=== PATIENT | male | born 2000 | race Caucasian/White ===

== ENCOUNTER 2024-05-30 01:23 | Observation (INO) ==
--- NOTE | 2024-05-30 01:33 | Emergency Department Note ---
Impression & Plan Hypothermia, Nausea and vomiting, Hypokalemia, Alcohol intoxication, Acute dehydration ED Provider Note CHIEF COMPLAINT: Alcohol overdose HISTORY OF PRESENTING ILLNESS: This 23 year old male patient presents to the emergency department via ambulance for evaluation of an alcohol overdose. The patient states that he was drinking alcohol at [facility] and had been smoking marijuana earlier today. The patient states that he smokes marijuana regularly. He denies any other drug use. The patient walked himself home from [facility] and then started vomiting a lot prior to getting into the shower. The patient was concerned about the amount of vomiting he had and he called 911 to be evaluated. Denies any injury or trauma. Denies any pain or symptoms at the time of arrival. REVIEW OF SYSTEMS: Positives and pertinent negatives listed in the HPI. ALLERGIES: Shellfish - anxiety MEDICATIONS: Anti-depressant, Xyzal, Possibly Ritalin per mom PAST MEDICAL HISTORY: Depression, allergic rhinitis PHYSICAL EXAM: Vitals are noted on the nurse's note and reviewed by myself. GENERAL: The patient is visibly intoxicated. Initially in no acute distress, non-diaphoretic, non-toxic in appearance. However, that did change as below. SKIN: The skin was without obvious lacerations, abrasions, or injuries. Capillary reflex less than 2 seconds. EYES: PERRLA. EOMI. Conjunctivae with mild injection, but no discharge. Sclerae without icterus. NOSE: Patent without discharge. MOUTH: Mucous membranes mildly dry. Uvula midline. Airway patent. NECK: Supple without nuchal rigidity. No cervical spine tenderness. HEART: Regular rate and rhythm without murmurs gallops or rubs. LUNGS: Clear to auscultation bilaterally without wheezes, rales or rhonchi. No retractions or accessory muscle use. ABDOMEN: Positive bowel sounds x 4. Normal tympanic percussion. Soft, nontender to palpation initially, but the patient developed diffuse tenderness to palpation throughout his stay. No masses or organomegaly. No guarding or rebound tenderness. MUSCULOSKELETAL: No gross musculoskeletal defects. NEUROLOGIC: The patient is visibly intoxicated. He was able to answer questions and follow simple commands upon arrival. DIFFERENTIAL DIAGNOSIS: Differential diagnosis includes alcohol intoxication, drug intoxication, toxicologic, infection, hypoglycemia, electrolyte abnormalities, cardiac sources, intracerebral event, neurologic, trauma, psychosis, as well as other pathologies. ED COURSE AND MEDICAL DECISION MAKING: HISTORY FROM INDEPENDENT HISTORIAN: Additional history was obtained from EMS due to the patient's intoxication. I also obtained additional history from the patient's mother after obtaining consent from the patient to speak with his mother. MONITOR: Continuous computer meteorologist: Order was placed for continuous computer meteorologist. Patient was placed on the computer meteorologist and continuous pulse ox. Patient was noted to be in normal sinus rhythm at an initial rate of 60 bpm per my interpretation. EKG: EKG was interpreted by myself as sinus rhythm at 64 bpm with prolonged QT, but no acute ST or T wave changes. MEDICATIONS GIVEN: Phenergan 25 mg IM, Compazine 5 mg IV, a total of 1 L normal saline solution bolus. K rider. LR at 150 mL/h. INTERPRETATION OF LABS: I interpreted the labs with full lab results as below in the lab section of this note with pertinent findings discussed in the MDM summary. INTERPRETATION OF IMAGING: Imaging studies were interpreted by myself and read by radiology as per the imaging section of this note. CT scan of the head was negative for acute intracranial abnormality. CTA of the chest showed focal clusters of small groundglass opacities involving the superior segment of the left lower lobe. Possible infective etiology. No evidence for PE or other acute abnormalities. CT scan of the abdomen pelvis with IV contrast was negative for acute abnormalities. CONSULTATIONS: On-call hospitalist CRITICAL CARE: I have personally spent 45 minutes of critical care time in the direct management of this patient. This includes bedside care, interpretation of diagnostic studies, and testing, discussion with consultants, patient, and family members, and other required patient management activities. This 45 minutes is in excess of all separately billable procedures. MDM SUMMARY: I examined the patient. The patient is from [place] and is in town visiting friends for the football game. The patient was drinking alcohol at [employer] this evening and states that he had smoked marijuana earlier in the day. The patient was able to walk himself back to his friend's apartment. However, as he was trying to get in the shower, he started having significant vomiting and became concerned and called 911 himself. The patient denies any injury or trauma. At the time of my exam, the patient denied any symptoms and his nausea and vomiting had improved. The patient does not remember all of his medications, but states that he takes an anti-depressant. His mother feels that he may be on Ritalin as well. Conservative care measures were instituted and the patient was monitored throughout their stay. Aspiration precautions were instituted. While in the ER, the patient became bradycardic and nursing staff was concerned about his appearance. I presented to the bedside. The patient was retching and then started vomiting. However, he was still able to respond and answer questions. BSG was 99. EKG was obtained and was as above. Due to the prolonged QT, the Zofran was canceled and the patient was given Phenergan 25 mg IM for his nausea and vomiting. The patient's oral temp on arrival was 36.8 C, but he felt cold to touch and rectal temp was obtained and was 33.9 C. A Sharath hugger was placed to warm up the patient. At this point, an IV was placed and additional labs were obtained. The patient's potassium was 2.9 and he was given a K rider. He was also given 500 mL normal saline solution bolus initially followed by another 500 mL normal saline solution bolus. Due to the severe IV fluid shortage, no additional fluids were given in the ER at this time. The patient did improve after the IM Phenergan, IV fluids, and K rider. The patient's white blood cell count was normal at 6.17. Hemoglobin normal at 15.5. Platelet count normal at 181. Potassium low at 2.9, anion gap elevated at 14, and total bilirubin 1.1 with the remainder of the CMP normal. Magnesium is normal at 2.1. Lipase normal. Urinalysis with trace ketones, but otherwise normal. Urine drug screen positive for marijuana, but otherwise normal. Medical alcohol level 129.6. CT scan of the head without contrast was negative for acute intracranial abnormalities. The patient's repeat rectal temperatures continued to show hypothermia despite the Sharath hugger. Repeat rectal temps were 34.7 C and 35.8 C. His bradycardia persisted, but did improve slightly with the IV fluids. His hypotension improved with the IV fluids as well. With the patient's permission, I spoke with the patient's mother and obtained additional history. Apparently the patient had pretty significant COVID with the original strain of the virus and was diagnosed with long COVID. She states that he has had continued problems with his lungs and intermittent splenomegaly since that time. She states that he is not able to handle vomiting very well since he had COVID. I had a meaningful discussion about this patient with Dr. Wright who agrees with my assessment and the treatment plan. We recommended the patient be admitted for further management of his symptoms due to the continued hypothermia. When I rechecked the patient to discuss admission due to his continued hypothermia, the patient developed significant abdominal pain and felt like he had shortness of breath as well. The patient also started vomiting again. He was given Compazine [address] scans of the chest, abdomen, and pelvis were obtained to rule out other causes of his hypothermia, bradycardia, and hypertension. CTA of the chest showed focal clusters of small groundglass opacities involving the superior segment of the left lower lobe. Possible infective etiology. No evidence for PE or other acute abnormalities. The patient has not had a cough, URI symptoms, or fever. Question whether the CT scan findings are secondary to his previous history of COVID vs aspiration pneumonia from his vomiting. CT scan of the abdomen pelvis with IV contrast was negative for acute abnormalities. The patient did feel improved after the IV Compazine and was able to rest again. I spoke with the on-call hospitalist who agreed to admit the patient for further evaluation and treatment. They recommended I start the patient on lactated Ringer's at 150 mL/h prior to their evaluation. Please refer to their dictation for further details. The patient's care was transferred in stable condition. DIAGNOSIS: Hypothermia Bradycardia Hypokalemia Nausea and vomiting Alcohol intoxication Dehydration Past Med/Surg History Problem List (Updated 05/30/24 @ 20:12 by Philly Jasmine PA-C) Acute dehydration (Acute) Tachycardia Aspiration pneumonia Hypothermia (Acute) Alcohol intoxication (Acute) Hypokalemia (Acute) Nausea and vomiting (Acute) Social History Smoking Status: Current every day smoker Tobacco Type: E-cigarettes / Vaping Hx Alcohol Use: Yes Hx Substance Use: Yes Last Used Substance: Just Prior to Arrival Preferred Language: [place] Communication Ability: Effective Esthetician/Owner Required: No Beliefs That Will Affect Care: None Current Living Situation: Parent Other Information That Helps Us Care for You: No Feels Safe at Home: Yes Safety Concerns: Feels Safe At This Time Assistive Devices: None Allergies Allergies Allergy/AdvReac Type Severity Reaction Status Date / Time shellfish derived Allergy Verified 05/30/24 01:34 Home Meds Home Medications Medication Instructions Recorded Confirmed Ritalin 50 mg PO DAILY 05/30/24 05/30/24 Previous Rx's Medication Instructions Recorded amoxicillin 875 mg-potassium 1 tab PO BID 7 days #14 tabs 05/30/24 clavulanate 125 mg tablet ondansetron 4 mg disintegrating 4 mg PO Q6H PRN nausea and 05/30/24 tablet vomiting #14 tabs pantoprazole 40 mg tablet,delayed 40 mg PO DAILY 14 days #14 tabs 05/30/24 release (Protonix) Results & Data (ED) Vital Signs Vital Signs - 24 hr 05/30/24 01:28 05/30/24 01:33 05/30/24 01:50 Temperature 36.8 C Temperature Source Oral Pulse Rate 47 L 49 L Pulse Rate [Apical] Pulse Rate from SpO2 Sensor Pulse Rhythm [Apical] Respiratory Rate 16 Respiratory Effort / Characteristics Respiratory Depth Blood Pressure 125/81 Blood Pressure [Left Arm] Blood Pressure Mean 95 Blood Pressure Mean [Left Arm] Pulse Oximetry 100 100 Oxygen Delivery Method Room Air Room Air Sepsis Recent Fever Within 48 Hours No Sepsis New/Unexplained Change in Mental Status N/A Sepsis Action Taken by Nursing No Action Required 05/30/24 02:26 05/30/24 02:26 05/30/24 03:39 Temperature 33.9 C L Temperature Source Rectal Pulse Rate 51 L Pulse Rate [Apical] 38 L Pulse Rate from SpO2 Sensor Pulse Rhythm [Apical] Regular Respiratory Rate 13 18 Respiratory Effort / Characteristics Non-Labored Spontaneous Respiratory Depth Normal Blood Pressure 125/81 Blood Pressure [Left Arm] 125/81 Blood Pressure Mean 95 Blood Pressure Mean [Left Arm] 95 Pulse Oximetry 100 96 Oxygen Delivery Method Room Air Sepsis Recent Fever Within 48 Hours Sepsis New/Unexplained Change in Mental Status Sepsis Action Taken by Nursing 05/30/24 05:00 05/30/24 05:06 05/30/24 05:25 Temperature 34.7 C L Temperature Source Rectal Pulse Rate 51 L 45 L Pulse Rate [Apical] Pulse Rate from SpO2 Sensor Pulse Rhythm [Apical] Respiratory Rate 16 Respiratory Effort / Characteristics Respiratory Depth Blood Pressure 95/42 L Blood Pressure [Left Arm] Blood Pressure Mean 59 Blood Pressure Mean [Left Arm] Pulse Oximetry 96 Oxygen Delivery Method Sepsis Recent Fever Within 48 Hours Sepsis New/Unexplained Change in Mental Status Sepsis Action Taken by Nursing 05/30/24 06:00 05/30/24 06:41 05/30/24 06:42 Temperature 35.8 C L Temperature Source Rectal Pulse Rate 53 L 61 Pulse Rate [Apical] Pulse Rate from SpO2 Sensor Pulse Rhythm [Apical] Respiratory Rate 20 18 Respiratory Effort / Characteristics Respiratory Depth Blood Pressure 110/60 131/44 L Blood Pressure [Left Arm] Blood Pressure Mean 76 73 Blood Pressure Mean [Left Arm] Pulse Oximetry 99 95 Oxygen Delivery Method Sepsis Recent Fever Within 48 Hours Sepsis New/Unexplained Change in Mental Status Sepsis Action Taken by Nursing 05/30/24 06:51 05/30/24 07:00 05/30/24 07:39 Temperature Temperature Source Pulse Rate 70 48 L Pulse Rate [Apical] Pulse Rate from SpO2 Sensor 64 54 L 51 L Pulse Rhythm [Apical] Respiratory Rate 13 14 Respiratory Effort / Characteristics Respiratory Depth Blood Pressure Blood Pressure [Left Arm] Blood Pressure Mean Blood Pressure Mean [Left Arm] Pulse Oximetry 95 94 93 Oxygen Delivery Method Sepsis Recent Fever Within 48 Hours Sepsis New/Unexplained Change in Mental Status Sepsis Action Taken by Nursing 05/30/24 08:02 05/30/24 08:09 05/30/24 08:30 Temperature 36.3 C L Temperature Source Rectal Pulse Rate 58 L 71 Pulse Rate [Apical] Pulse Rate from SpO2 Sensor 55 L 76 Pulse Rhythm [Apical] Respiratory Rate 13 13 Respiratory Effort / Characteristics Respiratory Depth Blood Pressure 103/67 Blood Pressure [Left Arm] Blood Pressure Mean 79 Blood Pressure Mean [Left Arm] Pulse Oximetry 98 96 Oxygen Delivery Method Sepsis Recent Fever Within 48 Hours Sepsis New/Unexplained Change in Mental Status Sepsis Action Taken by Nursing Laboratory Data 05/30/24 01:35 05/30/24 15:43 Lab Results 05/30/24 05/30/24 05/30/24 Range/Units 01:35 02:09 06:18 WBC 6.17 (4.8-10.8) K/ul RBC 5.21 (4.70-6.10) M/uL Hgb 15.5 (14.0-18.0) g/dl Hct 45.9 (42.0-52.0) % MCV 88.1 (80.0-100.0) fL MCH 29.8 (25.0-34.0) pg MCHC 33.8 (32.0-36.0) g/dL RDW Std Deviation 38.7 (36.4-46.3) fL RDW Coeff of Kalyn 12.0 (11.5-14.5) % Plt Count 181 (130-400) K/uL MPV 11.5 (9.4-12.4) fL Immature Gran % (Auto) 0.2 % Neut % (Auto) 56.9 % Lymph % (Auto) 33.1 % [place] % (Auto) 7.0 % Eos % (Auto) 2.3 % Baso % (Auto) 0.5 % Neut # (Auto) 3.52 (1.40-6.50) K/uL Lymph # (Auto) 2.04 (1.20-3.40) K/uL Atlantic # (Auto) 0.43 (0.11-0.59) K/uL Eos # (Auto) 0.14 (0.00-0.50) K/uL Baso # (Auto) 0.03 (0.00-0.20) K/uL Immature Gran # (Auto) 0.01 (0.01-0.20) K/uL Sodium 136 (136-145) mmol/L Potassium 2.9 L (3.5-5.1) mmol/L Chloride 102 (98-107) mmol/L Carbon Dioxide 20 L (21-32) mmol/L Anion Gap 14 H (3-11) BUN 16 (6-23) mg/dl Creatinine 1.00 (0.6-1.4) mg/dl Est Cr Clr Drug Dosing 139.7 ml/min eGFR 109.81 BUN/Creatinine Ratio 16.0 (10-20) Glucose 98 (70-99(Fasting)) mg/dl POC Glucose 99 (70-99) mg/dl Calcium 9.7 (8.6-10.3) mg/dl Magnesium 2.1 (1.7-2.4) mg/dl Total Bilirubin 1.1 H (0.2-1.0) mg/dl Direct Bilirubin 0.2 (0-0.2) mg/dl AST 24 (13-39) U/L ALT 12 (7-52) U/L Alkaline Phosphatase 56 (34-104) U/L Total Protein 7.9 (6.0-8.3) gm/dl Albumin 4.7 (3.4-5.0) gm/dl Lipase 29 (11-82) U/L Urine Color Yellow Urine Appearance Clear (Clear) Urine pH 6.5 (4.5-7.5) Ur Specific [place] 1.009 (1.000-1.030) Urine Protein Negative (Negative) Urine Glucose (UA) Negative (Negative) Urine Ketones Trace H (Negative) Urine Blood Negative (Negative) Urine Nitrite Negative (Negative) Urine Bilirubin Negative (Negative) Urine Urobilinogen Negative (Negative) Ur Leukocyte Esterase Negative (Negative) Urine Opiates Screen Neg (Neg) Ur Methadone, Qual Neg (Neg) Urine Fentanyl Screen Neg (Neg) Urine Barbiturates Neg (Neg) Ur Phencyclidine (PCP) Neg (Neg) U Amphetamin/Meth Scrn Neg (Neg) MDMA (Ecstasy) Screen Neg (Neg) U Benzodiazepines Scrn Neg (Neg) Ur Cocaine Metabolite Neg (Neg) U Marijuana (THC) Screen Pos H (Neg) Ethyl Alcohol mg/dL 129.6 H (<10.0) mg/dl Administered Medications Discontinued Medications Potassium Chloride (K Chris / Wtr) 10 meq in 100 mls @ 100 mls/hr IV ONE ONE; Protocol Stop: 05/30/24 03:12 Last Infusion: 05/30/24 03:29 Dose: Infused Documented By: Admin: 05/30/24 02:25 Dose: 100 mls/hr Documented By: NJ Sodium Chloride (Nss) 500 mls @ 999 mls/hr IV .Q31M ONE Stop: 05/30/24 02:43 Last Infusion: 05/30/24 03:09 Dose: Infused Documented By: Admin: 05/30/24 02:25 Dose: 999 mls/hr Documented By: NJ Sodium Chloride (Nss) 500 mls @ 999 mls/hr IV .Q31M ONE Stop: 05/30/24 06:12 Last Infusion: 05/30/24 06:44 Dose: Infused Documented By: Admin: 05/30/24 05:57 Dose: 999 mls/hr Documented By: CHRISTIE Prochlorperazine (Compazine) 1 mls @ 1 mls/min IV ONE ONE Stop: 05/30/24 06:12 Last Admin: 05/30/24 06:19 Dose: 1 mls/min Documented By: CHRISTIE Lactated Ringer's (Lr) 1,000 mls @ 150 mls/hr IV .Q6H40M [facility] Stop: 05/30/24 14:24 Last Infusion: 05/30/24 15:44 Dose: Infused Documented By: Admin: 05/30/24 07:59 Dose: 150 mls/hr Documented By: ALBERTA Famotidine (Pepcid 20mg Iv Push) 20 mg in 5 mls @ 2.5 mls/min IV NOW STA Stop: 05/30/24 08:54 Last Admin: 05/30/24 09:09 Dose: 2.5 mls/min Documented By: ALBERTA Potassium Chloride (K Chris / Wtr) 10 meq in 100 mls @ 100 mls/hr IV ONE ONE; Protocol Stop: 05/30/24 09:54 Last Infusion: 05/30/24 10:49 Dose: Infused Documented By: Admin: 05/30/24 09:09 Dose: 100 mls/hr Documented By: ALBERTA Pantoprazole Sodium (Protonix) 40 mg in 10 mls @ 5 mls/min IV NOW ONE Stop: 05/30/24 08:57 Last Admin: 05/30/24 09:09 Dose: 5 mls/min Documented By: ALBERTA Famotidine (Pepcid 20mg Iv Push) 20 mg in 5 mls @ 2.5 mls/min IV QAM DEO Stop: 06/29/24 10:12 Last Admin: 05/30/24 11:04 Dose: 2.5 mls/min Documented By: VADIM Ioversol (Optiray 320 125ml) 125 ml IV ONCE ONE Stop: 05/30/24 06:32 Last Admin: 05/30/24 06:31 Dose: 118 ml Documented By: MELCHOR Ondansetron HCl (Ondansetron Inj 2 Mg/Ml 2 Ml Vial) 4 mg IV NOW STA Stop: 05/30/24 01:59 Last Admin: 05/30/24 02:14 Dose: Not Given Documented By: NJ Promethazine HCl (Promethazine Hcl Inj 25 Mg/Ml 1 Ml Vial) 25 mg IM NOW STA Stop: 05/30/24 02:09 Last Admin: 05/30/24 02:13 Dose: 25 mg Documented By: NJ Imaging Data Radiologist's Impression: Head CT 05/30/24 05:31 EXAM: CT head/brain wo con CLINICAL HISTORY: hypothermia, alcohol intoxication INPATIENT TECHNIQUE: : Multiple axial images are obtained from the skull base to the vertex without contrast. CT scan was performed according to ALARA (as low as reasonable achievable COMPARISON: none FINDINGS: The brain shows normal morphology, attenuation, and volume for age. No evidence of space occupying lesion, hemorrhage, edema, mass effect, midline shift, extra axial collection, or hydrocephalus is noted. Ventricles, sulci, and basal cisterns are symmetric and normal in size and configuration. The meek-white matter differentiation is preserved. Visualized paranasal sinuses and mastoid air cells are well aerated. Orbital contents are within normal limits. Bony structures are intact. IMPRESSION: 1. No evidence of acute intracranial abnormality is demonstrated Electronically signed by Iraj Juarez 05-30-2024 06:57 AM Abdomen/Pelvis CT 05/30/24 06:11 EXAM: CT abd pelvis IV con only CLINICAL HISTORY: INPATIENT TECHNIQUE: Contiguous axial images were obtained from the level of the diaphragm to the pubic symphysis without and with intravenous contrast. Coronal and sagittal reconstructions were likewise performed and indicated to increase the sensitivity for detecting clinically relevant pathology. If IV contrast material had not been administered, the likelihood of detecting abnormalities relevant to the patient's condition would have been substantially decreased. CT scan was performed according to ALARA (as low as reasonable achievable). COMPARISON: None. FINDINGS: The visualized lung bases are clear. The liver is normal in size and attenuation. No focal liver lesions are seen. There is no intra or extrahepatic biliary ductal dilatation. Hepatic vasculature is patent. The gallbladder is present. The spleen, pancreas, and adrenal glands are unremarkable. The kidneys are normal in size and attenuation. There is no hydronephrosis or perinephric fat stranding. No renal calculi or renal masses are identified. The ureters are normal in caliber and no ureteral calculi are seen. The bladder is normal in contour. Pelvic viscera are unremarkable. No focal or diffuse bowel wall thickening or evidence of bowel obstruction is identified. The appendix is visualized in the right lower quadrant and appears within normal limits. Abdominal and pelvic vasculature is patent. No adenopathy or fluid collections are seen. No aggressive appearing osseous lesions are identified. IMPRESSION: Unremarkable study. Electronically signed by Iraj Juarez 05-30-2024 07:17 AM Chest CTA 05/30/24 06:11 EXAM: CT angio chest PE protocol CLINICAL HISTORY: 118 ml optiray 320, eval for pe, hypothermic, brachycardia, abd pain INPATIENT TECHNIQUE: Contiguous axial images were obtained from the neck base through the upper abdomen following intravenous administration of iodinated contrast material. Angiographic images were processed, 3D MIP images were acquired for interpretation. If IV contrast material had not been administered, the likelihood of detecting abnormalities relevant to the patient's condition would have been substantially decreased. Coronal and sagittal 3-D MIPs were likewise performed and indicated to increase the sensitivity of detectin diffuse clinically relevant pathology. CT scan was performed according to ALARA (as low as reasonable achievable). COMPARISON: None. FINDINGS: Focal clusters of small ground-glass opacities are noted involving superior segment of left lower lobe. Adequate contrast bolus without evidence of pulmonary embolism. The central airways are patent. The rest of lungs are clear. No pleural effusion. The heart, aorta, and pulmonary arteries are of normal size and configuration. There are no appreciable coronary artery and aortic atherosclerotic calcifications. No pericardial effusion is identified. The thyroid is unremarkable. No mediastinal, hilar, or axillary lymphadenopathy is noted. No suspicious lytic or sclerotic osseous lesions are identified. IMPRESSION: 1. Focal clusters of small ground-glass opacities are noted involving superior segment of left lower lobe.- possibility of infective aetiology 2. No evidence of pulmonary embolism. Electronically signed by Iraj Juarez 05-30-2024 07:16 AM Discharge Plan Visit Data Chief Complaint: Alcohol Intoxication Stated Complaint: ETOH, Anxiety ED Provider: Ruperto Wright ED Midlevel Provider: Philly Jasmine Discharge Problem: Hypothermia, Nausea and vomiting, Hypokalemia, Alcohol intoxication, Acute dehydration Patient Disposition: Admitted As Inpatient Condition: Fair Discharge Instructions Interventions: ED Discharge Assessment Last Done: 05/30/24 09:47 Discharge Problem: Hypothermia Qualifiers: Encounter type: initial encounter Qualified Code(s): T68.XXXA - Hypothermia, initial encounter Nausea and vomiting Qualifiers: Vomiting type: unspecified Qualified Code(s): R11.2 - Nausea with vomiting, unspecified Alcohol intoxication Qualifiers: Complication of substance-induced condition: uncomplicated Qualified Code(s): F 10.920 - Alcohol use, unspecified with intoxication, uncomplicated
[2024-05-30 02:05] LABS: Calcium 9.7 mg/dl (8.6-10.3); Potassium 2.9 mmol/L (3.5-5.1)
[2024-05-30 02:11] LABS: Creatinine Clr Calc Pharmacy 139.7 ml/min
[2024-05-30] MEDS: PROMETHAZINE HCL INJ 25 MG/ML 1 ML VIAL IM STA (02:13)
[2024-05-30] MEDS: ONDANSETRON INJ 2 MG/ML 2 ML VIAL IV STA (02:14)
[2024-05-30] MEDS: POTASSIUM CHLORIDE / WTR 10 MEQ/100 ML PLCT IV ONE ×2 (02:25→09:09)
[2024-05-30] MEDS: SODIUM CHLORIDE 0.9% 500 ML IV ONE ×2 (02:25→05:57)
[2024-05-30 02:31] LABS: Basophils # (auto) 0.03 K/uL (0.00-0.20); Basophils % (auto) 0.5 %; Eosinophils # (auto) 0.14 K/uL (0.00-0.50); Eosinophils % (auto) 2.3 %; Hematocrit (blood only) 45.9 % (42.0-52.0); Hemoglobin 15.5 g/dl (14.0-18.0); Immature Granulocytes # (auto) 0.01 K/uL (0.01-0.20); Immature Granulocytes % (auto) 0.2 %; Lymphocytes # (auto) 2.04 K/uL (1.20-3.40); Lymphocytes % (auto) 33.1 %; Mean Corpuscular Hemoglobin 29.8 pg (25.0-34.0); Mean Corpuscular Hgb Conc 33.8 g/dL (32.0-36.0); Mean Corpuscular Volume 88.1 fL (80.0-100.0); Mean Platelet Volume 11.5 fL (9.4-12.4); Monocytes # (auto) 0.43 K/uL (0.11-0.59); Neutrophils # (auto) 3.52 K/uL (1.40-6.50); Neutrophils % (auto) 56.9 %; Platelet Count 181 K/uL (130-400); RDW Standard Deviation 38.7 fL (36.4-46.3); Red Blood Count 5.21 M/uL (4.70-6.10); White Blood Count 6.17 K/ul (4.8-10.8)
[2024-05-30 02:34] LABS: Albumin Level 4.7 gm/dl (3.4-5.0); Bilirubin Direct 0.2 mg/dl (0-0.2); Bilirubin,Total 1.1 mg/dl (0.2-1.0); Magnesium 2.1 mg/dl (1.7-2.4)
[2024-05-30 02:40] LABS: Total Protein 7.9 gm/dl (6.0-8.3)
[2024-05-30] MEDS: PROCHLORPERAZINE 1 ML IV ONE (06:19)
[2024-05-30] MEDS: OPTIRAY 320 125ml IV ONE (06:31)
--- NOTE | 2024-05-30 06:57 | CT Scan Report ---
EXAM: CT head/brain wo con CLINICAL HISTORY: hypothermia, alcohol intoxication INPATIENT TECHNIQUE: : Multiple axial images are obtained from the skull base to the vertex without contrast. CT scan was performed according to ALARA (as low as reasonable achievable COMPARISON: none FINDINGS: The brain shows normal morphology, attenuation, and volume for age. No evidence of space occupying lesion, hemorrhage, edema, mass effect, midline shift, extra axial collection, or hydrocephalus is noted. Ventricles, sulci, and basal cisterns are symmetric and normal in size and configuration. The meek-white matter differentiation is preserved. Visualized paranasal sinuses and mastoid air cells are well aerated. Orbital contents are within normal limits. Bony structures are intact. IMPRESSION: 1. No evidence of acute intracranial abnormality is demonstrated Electronically signed by Iraj Juarez 05-30-2024 06:57 AM
[2024-05-30 06:59] LABS: Amphetamines+Metham, Urine Neg (Neg); Barbiturates, Urine Neg (Neg); Benzodiazepine, Urine Neg (Neg); Cocaine, Urine Neg (Neg); Fentanyl, Urine Neg (Neg); MDMA (Ecstacy), Urine Neg (Neg); Marijuana, Urine Pos (Neg); Methadone, Urine Neg (Neg); Opiate, Urine Neg (Neg); Phencyclidine, Urine Neg (Neg)
--- NOTE | 2024-05-30 07:16 | CT Scan Report ---
EXAM: CT angio chest PE protocol CLINICAL HISTORY: 118 ml optiray 320, eval for pe, hypothermic, brachycardia, abd pain INPATIENT TECHNIQUE: Contiguous axial images were obtained from the neck base through the upper abdomen following intravenous administration of iodinated contrast material. Angiographic images were processed, 3D MIP images were acquired for interpretation. If IV contrast material had not been administered, the likelihood of detecting abnormalities relevant to the patient's condition would have been substantially decreased. Coronal and sagittal 3-D MIPs were likewise performed and indicated to increase the sensitivity of detectin diffuse clinically relevant pathology. CT scan was performed according to ALARA (as low as reasonable achievable). COMPARISON: None. FINDINGS: Focal clusters of small ground-glass opacities are noted involving superior segment of left lower lobe. Adequate contrast bolus without evidence of pulmonary embolism. The central airways are patent. The rest of lungs are clear. No pleural effusion. The heart, aorta, and pulmonary arteries are of normal size and configuration. There are no appreciable coronary artery and aortic atherosclerotic calcifications. No pericardial effusion is identified. The thyroid is unremarkable. No mediastinal, hilar, or axillary lymphadenopathy is noted. No suspicious lytic or sclerotic osseous lesions are identified. IMPRESSION: 1. Focal clusters of small ground-glass opacities are noted involving superior segment of left lower lobe.- possibility of infective aetiology 2. No evidence of pulmonary embolism. Electronically signed by Iraj Juarez 05-30-2024 07:16 AM
--- NOTE | 2024-05-30 07:17 | CT Scan Report ---
EXAM: CT abd pelvis IV con only CLINICAL HISTORY: INPATIENT TECHNIQUE: Contiguous axial images were obtained from the level of the diaphragm to the pubic symphysis without and with intravenous contrast. Coronal and sagittal reconstructions were likewise performed and indicated to increase the sensitivity for detecting clinically relevant pathology. If IV contrast material had not been administered, the likelihood of detecting abnormalities relevant to the patient's condition would have been substantially decreased. CT scan was performed according to ALARA (as low as reasonable achievable). COMPARISON: None. FINDINGS: The visualized lung bases are clear. The liver is normal in size and attenuation. No focal liver lesions are seen. There is no intra or extrahepatic biliary ductal dilatation. Hepatic vasculature is patent. The gallbladder is present. The spleen, pancreas, and adrenal glands are unremarkable. The kidneys are normal in size and attenuation. There is no hydronephrosis or perinephric fat stranding. No renal calculi or renal masses are identified. The ureters are normal in caliber and no ureteral calculi are seen. The bladder is normal in contour. Pelvic viscera are unremarkable. No focal or diffuse bowel wall thickening or evidence of bowel obstruction is identified. The appendix is visualized in the right lower quadrant and appears within normal limits. Abdominal and pelvic vasculature is patent. No adenopathy or fluid collections are seen. No aggressive appearing osseous lesions are identified. IMPRESSION: Unremarkable study. Electronically signed by Iraj Juarez 05-30-2024 07:17 AM
[2024-05-30 07:24] LABS: Appearance Urine Clear (Clear); Bilirubin Urine Negative (Negative); Blood Urine Negative (Negative); Color Urine Yellow; Glucose Urine UA Negative (Negative); Ketones Urine Trace (Negative); Leukocyte Esterase Urine Negative (Negative); Nitrite Urine Negative (Negative); Protein Urine Negative (Negative); Specific Gravity Urine 1.009 (1.000-1.030); Urobilinogen Urine Negative (Negative); pH Urine 6.5 (4.5-7.5)
[2024-05-30] MEDS: LACTATED RINGER'S 1,000 ML IV SCH (07:59)
--- NOTE | 2024-05-30 08:03 | History & Physical Report ---
Date of Service May 30, 2024 Assessment & Plan (1) Nausea and vomiting: Plan: Patient visiting from [place]; he was drinking alcohol at [facility] on the evening of 05/29, then developed severe N/V and he called 911 Patient was hypothermic at 33.9 C on arrival as well as mildly hypotensive Promethazine + Compazine in the ED IV antiemetics as needed Given QTc of 491, will defer Zofran at this time and put on Compazine 5 mg IV as needed Famotidine 20 mg IV Protonix 40 mg IV NSS 500 mL IV x 2 Continue IVF resuscitation with LR at 150mL/hr x 1 L Once patient is able to tolerate fluids, encourage p.o. intake Aspiration precautions A.m. CBC, BMP (2) Aspiration pneumonia: Plan: Patient does believe that some of the vomit went down the "wrong pipe" Chest CTA on arrival did not reveal evidence of PE, but did note focal groundglass opacities in the superior segment of the LLL with possible infective etiology Unasyn 3000 mg IV x 1 with plan to transition to Augmentin once patient can tolerate p.o. intake Continuous pulse oximetry (3) Tachycardia: Plan: Suspect secondary to volume contraction and vomiting IVF (as above) Continuous telemetry monitoring (4) Hypokalemia: Plan: K 2.9 on arrival K rider 10mEq x 2 Once patient is tolerating p.o. intake, will add on potassium chloride p.o. supplementation Trend BMP (5) Hypothermia: Plan: Benigno mcrae (6) Alcohol intoxication: Plan: Alcohol level was 129 at time of ER presentation. He admitted to drinking potentially up to 10 alcoholic beverages the evening of admission. His alcohol intoxication led to severe vomiting, hypothermia, low blood pressure, etc. All vital signs were acceptable by time of discharge. Chemistries were normal prior to discharge. He was counseled on the dangers of excess alcohol use. At discharge I recommended a full liquids diet for about 24 hours, then resumption of a bland diet for a day or two. (7) Gilbert's syndrome: Plan: patient was diagnosed with such several years prior as a teenager. total bilirubin was 1.1 to 1.3 while here with normal direct fraction and otherwise normal LFTs. this is consistent with Gilbert's. Plan Disposition: Obs -admit to MedSurg telemetry Full code Full liquid diet, advance as tolerated VTE PPx: Low risk History of Present Illness Chief Complaint: Nausea and vomiting Primary Care Provider: NO PCP Quincy is a 23-year-old male with PMH of depression. He presented via EMS on 05/30 for alcohol intoxication. He reports he was at [facility] the evening of 05/29, and when he got home he called 911 on himself due to excessive nausea and vomiting. No hematemesis. He believes that some of the vomit might of gone down the "wrong pipe". In terms of alcohol use, he reports having "at least 7 beers" as well as hard alcohol. He denies any other recreational drug use at this time. He reports he has not had marijuana in the past 4 to 6 hours. Patient reports he was not feeling sick this week, and that all of his symptoms started last night around 1-2 AM when he started vomiting. Additionally, he reports dry heaves and hot flashes whenever he wakes up or speaking with someone in the room. His only medication is an antidepressant; he used to be on Lexapro, but believes he switched to a new medication that starts with an "O"; believes this might be "olanzapine". Patient is currently visiting the area from [place]. He denies any other past medical history at this time. NKDA. He reports he does not have any allergies to penicillin or antibiotics. Patient was hypothermic at 33.8 C on arrival with low BP (95/42). On admission, his BP is 131/44 and his temperature is up to 35.8 C. ED course: Phenergan 25 mg IM Compazine 1 mL IV K rider 10mEq IV NSS 500 mL IV x 2 ROS: Patient endorses fever, sweating, headache, nausea, dry heaving, and vomiting. Patient denies dizziness, lightheadedness, chest pain, SOB, pleuritic CP, hematemesis, diarrhea, or changes in urinary/bowel habits. Allergies Allergy/AdvReac Type Severity Reaction Status Date / Time shellfish derived Allergy Verified 05/30/24 01:34 Home Medications Medication Instructions Recorded Confirmed Type Ritalin 50 mg PO DAILY 05/30/24 05/30/24 History Past Med/Surg History Problem List (Updated 06/03/24 @ 17:09 by Benigno Doran MD) Acute dehydration (Acute) Tachycardia Aspiration pneumonia Hypothermia (Acute) Hypokalemia (Acute) Nausea and vomiting (Acute) Medical History (Updated 06/03/24 @ 17:09 by Benigno Doran MD) Gilbert's syndrome Alcohol intoxication Social History Smoking Status: Current every day smoker Tobacco Type: E-cigarettes / Vaping Hx Alcohol Use: Yes Hx Substance Use: Yes Last Used Substance: Just Prior to Arrival Preferred Language: Nigerien Communication Ability: Effective Liquid Sugar Melter Required: No Beliefs That Will Affect Care: None Current Living Situation: Parent Other Information That Helps Us Care for You: No Feels Safe at Home: Yes Safety Concerns: Feels Safe At This Time Assistive Devices: None Review of Systems Review of Systems: See HPI above Physical Exam Physical Exam: General: Acute distress secondary to dry heaves and vomiting in the room; patient reports he is having hot flashes; non-toxic appearing; cooperative; SpO2 98% on RA HEENT: normocephalic, atraumatic; no scleral icterus; PERRLA; vision and hearing intact Neck: supple; trachea midline Skin: warm, dry without signs of tenting; no cyanosis; no rashes, bruising, lesions, or erythema noted CV: chest wall NTP; RRR; S1/S2 normal; no murmurs/rubs/gallops; pulses intact and symmetric at radial, DP, and PT Lungs: no acute respiratory distress; symmetrical chest wall expansion; clear breath sounds across all lung rosenthal w/o adventitious sounds; no wheezing ABD: Soft, NTP; BS present; no rebound/guarding; no distention MSK: no tics or fasciculations; no edema noted in the LEs b/l, nonerythematous Neuro: A&Ox3; normal mood and affect; fluent speech; no focal deficits; se nsation grossly intact in the LEs b/l Results & Data Results & Data Vital Signs (Past 12 Hours) Vital Signs Temp Pulse Pulse Resp BP BP Pulse Ox 05/30/24 06:42 35.8 C L 05/30/24 06:41 61 18 131/44 L 95 05/30/24 06:00 53 L 20 110/60 99 05/30/24 05:25 45 L 05/30/24 05:06 34.7 C L 05/30/24 05:00 51 L 16 95/42 L 96 05/30/24 03:39 51 L 18 125/81 96 05/30/24 02:26 33.9 C L 05/30/24 02:26 38 L 13 125/81 100 05/30/24 01:50 100 05/30/24 01:33 36.8 C 49 L 16 125/81 100 05/30/24 01:28 47 L O2 Del Method 05/30/24 06:42 05/30/24 06:41 05/30/24 06:00 05/30/24 05:25 05/30/24 05:06 05/30/24 05:00 05/30/24 03:39 05/30/24 02:26 05/30/24 02:26 Room Air 05/30/24 01:50 Room Air 05/30/24 01:33 Room Air 05/30/24 01:28 Laboratory Results Abnormal lab results 05/30/24 05/30/24 Range/Units 01:35 06:18 Potassium 2.9 L (3.5-5.1) mmol/L Carbon Dioxide 20 L (21-32) mmol/L Anion Gap 14 H (3-11) Total Bilirubin 1.1 H (0.2-1.0) mg/dl Urine Ketones Trace H (Negative) U Marijuana (THC) Screen Pos H (Neg) Ethyl Alcohol mg/dL 129.6 H (<10.0) mg/dl Diagnostic Findings Head CT 05/30/24 05:31 EXAM: CT head/brain wo con CLINICAL HISTORY: hypothermia, alcohol intoxication INPATIENT TECHNIQUE: : Multiple axial images are obtained from the skull base to the vertex without contrast. CT scan was performed according to ALARA (as low as reasonable achievable COMPARISON: none FINDINGS: The brain shows normal morphology, attenuation, and volume for age. No evidence of space occupying lesion, hemorrhage, edema, mass effect, midline shift, extra axial collection, or hydrocephalus is noted. Ventricles, sulci, and basal cisterns are symmetric and normal in size and configuration. The meek-white matter differentiation is preserved. Visualized paranasal sinuses and mastoid air cells are well aerated. Orbital contents are within normal limits. Bony structures are intact. IMPRESSION: 1. No evidence of acute intracranial abnormality is demonstrated Electronically signed by Iraj Juarez 05-30-2024 06:57 AM Abdomen/Pelvis CT 05/30/24 06:11 EXAM: CT abd pelvis IV con only CLINICAL HISTORY: INPATIENT TECHNIQUE: Contiguous axial images were obtained from the level of the diaphragm to the pubic symphysis without and with intravenous contrast. Coronal and sagittal reconstructions were likewise performed and indicated to increase the sensitivity for detecting clinically relevant pathology. If IV contrast material had not been administered, the likelihood of detecting abnormalities relevant to the patient's condition would have been substantially decreased. CT scan was performed according to ALARA (as low as reasonable achievable). COMPARISON: None. FINDINGS: The visualized lung bases are clear. The liver is normal in size and attenuation. No focal liver lesions are seen. There is no intra or extrahepatic biliary ductal dilatation. Hepatic vasculature is patent. The gallbladder is present. The spleen, pancreas, and adrenal glands are unremarkable. The kidneys are normal in size and attenuation. There is no hydronephrosis or perinephric fat stranding. No renal calculi or renal masses are identified. The ureters are normal in caliber and no ureteral calculi are seen. The bladder is normal in contour. Pelvic viscera are unremarkable. No focal or diffuse bowel wall thickening or evidence of bowel obstruction is identified. The appendix is visualized in the right lower quadrant and appears within normal limits. Abdominal and pelvic vasculature is patent. No adenopathy or fluid collections are seen. No aggressive appearing osseous lesions are identified. IMPRESSION: Unremarkable study. Electronically signed by Iraj Juarez 05-30-2024 07:17 AM Chest CTA 05/30/24 06:11 EXAM: CT angio chest PE protocol CLINICAL HISTORY: 118 ml optiray 320, eval for pe, hypothermic, brachycardia, abd pain INPATIENT TECHNIQUE: Contiguous axial images were obtained from the neck base through the upper abdomen following intravenous administration of iodinated contrast material. Angiographic images were processed, 3D MIP images were acquired for interpretation. If IV contrast material had not been administered, the likelihood of detecting abnormalities relevant to the patient's condition would have been substantially decreased. Coronal and sagittal 3-D MIPs were likewise performed and indicated to increase the sensitivity of detectin diffuse clinically relevant pathology. CT scan was performed according to ALARA (as low as reasonable achievable). COMPARISON: None. FINDINGS: Focal clusters of small ground-glass opacities are noted involving superior segment of left lower lobe. Adequate contrast bolus without evidence of pulmonary embolism. The central airways are patent. The rest of lungs are clear. No pleural effusion. The heart, aorta, and pulmonary arteries are of normal size and configuration. There are no appreciable coronary artery and aortic atherosclerotic calcifications. No pericardial effusion is identified. The thyroid is unremarkable. No mediastinal, hilar, or axillary lymphadenopathy is noted. No suspicious lytic or sclerotic osseous lesions are identified. IMPRESSION: 1. Focal clusters of small ground-glass opacities are noted involving superior segment of left lower lobe.- possibility of infective aetiology 2. No evidence of pulmonary embolism. Electronically signed by Iraj Juarez 05-30-2024 07:16 AM ECG Additional Comments: ECG revealed sinus rhythm with marked sinus arrhythmia at 64 bpm; QTc 491 No prior EKGs for comparison Code Status & VTE Plan Code Status Full code (discussed with patient at bedside) VTE Prophylaxis Plan VTE Prophylaxis will be ordered: Yes Supervising Physician Co-Signing Physician Notes Attending Attestation & Admit Note: Pt seen/examined, chart reviewed, care plan d/w JUAN M Dukes. I agree w/ the morgan components of his documentation. 23yo male with history of Gilbert's syndrome who presented to [facility] ER with severe nausea with vomiting. This was several hours after a night of heavy etoh consumption with his friends (Beer + Liquor). Upon ER presentation he was hypothermic, mildly hypotensive and tachycardic. Etoh level was elevated in the 120s. K was low at 2.9. He had a mild acidosis on chemistries 2nd to his alcohol intoxication. In the ER he was given copious IV fluids, anti-emetics, etc. He underwent freeman-CT showing a small amount of probable aspiration in the left lower lobe on chest CT. CT a/p was wnl. PMH/PSH/allergies/meds/sochx/famhx - reviewed vitals - mildly tachy, mildly low BP - both improved since ER presentation; temp low in the ER, now normal exam - see discharge summary for my discharge examination labs - K 2.9 anion gap 14 serum bicarb 20 total bili 1.1 cbc wnl EKG - sinus tach, mildly prolonged QTc of 490, early repolarization in chest leads & limb leads A/P: 1. severe dehydration 2nd to vomiting from alcohol intoxication - cont IV fluids 2. sinus tachycardia - 2nd to volume depletion - will improve with IV fluids 3. hypotension - 2nd to volume depletion from alcohol intoxication & vomiting - already improved/resolved 4. hypothermia - 2nd to alcohol intoxication - already improved/nearly resolved 5. probable LLL aspiration pneumonia - IV unasyn 6. mildly elevated bilirubin - 2nd to Gilbert's syndrome; no Rx needed Benigno Doran MD PG Care Time/CCT Total # of Minutes Spent Total Time Spent with Patient: Total time spent is greater than 50% in coordination of care (as documented) at patient's floor/unit and/or counseling patient: [place] [address] INT INP/OBS CARE 3/75MIN Patient Type New Medical Decision Making High Complexity Diagnoses Nausea and vomiting R11.2 Aspiration pneumonia J69.0 Tachycardia R00.0 Hypokalemia E87.6 Hypothermia T68.XXXA Alcohol intoxication F10.929 Gilbert's syndrome E80.4
[2024-05-30] MEDS: FAMOTIDINE 20MG IV PUSH 20 MG/5 ML SYR IV STA (09:09)
[2024-05-30] MEDS: PANTOprazole 40 MG/10 ML SYR IV ONE (09:09)
[2024-05-30] MEDS ORDERED: AMPICILLIN/SULBACTAM SOD 3,000 MG/100 ML BAG IV STA (09:42)
[2024-05-30] MEDS ORDERED: PROCHLORPERAZINE 5 MG in SYRINGE 4 ML IV PRN (10:13)
[2024-05-30] MEDS ORDERED: ACETAMINOPHEN 325 MG TAB PO PRN (10:13)
[2024-05-30] MEDS: FAMOTIDINE 20MG IV PUSH 20 MG/5 ML SYR IV SCH (11:04)
--- NOTE | 2024-05-30 13:40 | Electrocardiogram Report ---
Test Reason : Blood Pressure : */* mmHG Vent. Rate : 64 BPM Atrial Rate : 67 BPM P-R Int : 144 ms QRS Dur : 114 ms QT Int : 476 ms P-R-T Axes : 57 81 74 degrees QTcB Int : 491 ms Sinus rhythm with marked sinus arrhythmia ST elevation, consider early repolarization, pericarditis, or injury Prolonged QT Abnormal ECG No previous ECGs available Confirmed by Ronny Fontenot ([id number]) on 05/30/2024 1:39:59 PM Referred By: Confirmed By: Ronny Fontenot
[2024-05-30 15:24] VITALS: BP 139/77; RESP 18; TEMP 97.7; O2SAT 99
[2024-05-30 16:17] LABS: Albumin Globulin Ratio 1.5 (0.9-2); Albumin Level 4.4 gm/dl (3.4-5.0); BUN Creatinine Ratio 16.3 (10-20); Bilirubin,Total 1.3 mg/dl (0.2-1.0); Calcium 9.6 mg/dl (8.6-10.3); Creatinine Clr Calc Pharmacy 142.5 ml/min; Globulin 2.9 gm/dl (2.5-4.0); Potassium 4.4 mmol/L (3.5-5.1); Total Protein 7.3 gm/dl (6.0-8.3)
--- NOTE | 2024-05-30 18:26 | Discharge Summary ---
Discharge Summary Date of Service date of admission - May 30, 2024 date of discharge - May 30, 2024 Principal Dx & Hospital Course #1 = Principal Diagnosis (1) Alcohol intoxication: Alcohol level was 129 at time of ER presentation. He admitted to drinking potentially up to 10 alcoholic beverages the evening of admission. His alcohol intoxication led to severe vomiting, hypothermia, low blood pressure, etc. All vital signs were acceptable by time of discharge. Chemistries were normal prior to discharge. He was counseled on the dangers of excess alcohol use. At discharge I recommended a full liquids diet for about 24 hours, then res umption of a bland diet for a day or two. (2) Nausea and vomitinnd to alcohol intoxication. Can't rule out gastritis from excess alcohol. Resolved by time of discharge. He received H2 shyann and anti-emetics while here. I recommended a 2-week course of protonix 40mg daily in the event he had gastritis from the excessive alcohol consumption. He was also given zofran to use on prn basis after discharge. (3) Aspiration pneumonia: Chest CTA showed opacities in the superior segment of the LLL at time of ER presentation. He had not been ill in the days leading up to this brief admission. Suspect that the small infiltrate was due to aspiration from his severe vomiting. O2 sats were wnl and he did not have any pulmonary symptoms while here. Advised a 7-day course of augmentin 875mg BID for the above. Also recommended a repeat chest x-ray in 1 month. (4) Tachycardia: 2nd severe dehydration. Improved s/p volume resuscitation. HRs with walking were low 100s at time of discharge and <100 at rest. (5) Hypokalemia: K 2.9 on arrival. s/p replacement with resolution. discharge K level was 4.4. Hypokalemia was 2nd to severe vomiting. Magnesium level was normal at 2.1. (6) Hypothermia: Likely 2nd to severe volume depletion in the setting of alcohol intoxication. Temperatures normalized with warming blanket & supportive care. He had no evidence of sepsis during his brief stay. (7) Gilbert's syndrome: patient was diagnosed with such several years prior as a teenager. total bilirubin was 1.1 to 1.3 while here with normal direct fraction and otherwise normal LFTs. this is consistent with Gilbert's. Plan Initial EKG showed mildly prolonged QTc. This was 2nd to his hypokalemia. Following normalization of his potassium level his QTc normalized on repeat EKG. Patient's mother - with his permission - was updated just prior to discharge by phone. Admission HPI Per Admitting Provider Quincy Jones is a 23-year-old male with PMH of depression. He presented via EMS on 05/30 for alcohol intoxication. He reports [facility] of [facility], and when he got home he called 911 on himself due to excessive nausea and vomiting. No hematemesis. He believes that some of the vomit might of gone down the "wrong pipe". In terms of alcohol use, he reports having "at least 7 beers" as well as hard alcohol. He denies any other recreational drug use at this time. He reports he has not had marijuana in the past 4 to 6 hours. Patient reports he was not feeling sick this week, and that all of his symptoms started last night around 1-2 AM when he started vomiting. Additionally, he reports dry heaves and hot flashes whenever he wakes up or speaking with someone in the room. His only medication is an antidepressant; he used to be on Lexapro, but believes he switched to a new medication that starts with an "O"; believes this might be "olanzapine". Patient is currently visiting the area from [place]. He denies any other past medical history at this time. NKDA. He reports he does not have any allergies to penicillin or antibiotics. Patient was hypothermic at 33.8 C on arrival with low BP (95/42). On admission, his BP is 131/44 and his temperature is up to 35.8 C. ED course: Phenergan 25 mg IM Compazine 1 mL IV K rider 10mEq IV NSS 500 mL IV x 2 ROS: Patient endorses fever, sweating, headache, nausea, dry heaving, and vomiting. Patient denies dizziness, lightheadedness, chest pain, SOB, pleuritic CP, hematemesis, diarrhea, or changes in urinary/bowel habits. Discharge Exam gen - NAD, awake, alert; no signs of intoxication mouth - MMM neck - no JVD heart - regular rate (90s); s1 s2; no murmur lungs - CTA b/l, no rales, no wheeze abd - soft NT ND BS+; no HSM ext - no edema, pulses 2+ b/l psych - a/o x 3 Discharge Plan Discharge Items Patient Disposition: Home - Self-Care Reason For Visit: Vomiting, Dehydration Discharge Diagnosis: 1. alcohol intoxication - resolved 2. likely gastritis from #1 3. vomiting due to #1, #2 4. left-sided aspiration pneumonia (seen on CT chest) 5. Gilbert's syndrome 6. low potassium - due to #3 - resolved 7. hypothermia (low body temperature) - resolved; due to dehydration 8. dehydration - resolved Condition on Discharge: Fair Activity: As commented below Activity Comment: light activities for 48 hours, then gradually resume normal activities Exercise Comment: rest for the next 48 hours, then can resume as tolerated if feeling well Non-emergency contact: Primary Care Provider Call non-emergency contact if: you have any medication questions, your symptoms worsen and you have a fever Follow-up/Referrals: PCP,NO [Primary Care Provider] - Diet: Full liquid Addtl Attending Provider Instructions: Mr Jones, Emmanuel were hospitalized due to alcohol intoxication. This led to large amounts of vomiting, low potassium, and likely gastritis. Gastritis is irritation of the stomach lining which can cause mild pain, nausea, etc. The alcohol intoxication & dehydration caused low body temperature. This resolved with IV fluids and a warming blanket. CT scans of the chest, abdomen, and pelvis were taken. The abdomen/pelvis CT was normal. The chest CT showed a small amount of pneumonia in the bottom of the left lung. I suspect that when you were vomiting this led to mild aspiration which is when some of the vomit travels down into the lung(s). Repeat labs late in the day on 05/30 showed normalization of your potassium and other electrolytes. Repeat EKG late in the day on 05/30 was normal. Recommendations - 1. for pneumonia - start TONIGHT, 05/30 - * amoxicillin-clavulanate 875mg twice daily x 7 days * DO NOT DRINK ALCOHOL while taking antibiotics * most common side effect of this antibiotic - diarrhea 2. for suspected gastritis - * pantoprazole 40mg once daily x 14 days, first dose TONIGHT 05/30 3. for nausea and/or vomiting - * ondansetron 4mg every 6 hours as needed 4. diet - * plan to follow a "full liquids" diet tonight and most of tomorrow * see handout on "full liquids" diet * focus on good hydration tonight and tomorrow; water, gatorade, powerade, Pedialyte are all excellent choices for hydration; avoid soda, coffee, caffeinated tea for a few days * avoid alcohol * avoid tobacco * avoid marijuana * as you get into tomorrow night & Sunday morning you can start to add in bland, easy to digest solid foods as tolerated (rice, toast, applesauce, bananas, chicken breast, etc) * I suspect by Sunday you will be back to tolerating a normal diet 5. please follow-up with your family doctor THIS SUNDAY upon return to your home in [place]; if you are feeling worse tomorrow or Sunday, however - please seek medical attention in the [facility] ER, a local urgent care, or any other hospital 6. see handout on alcohol intoxication 7. please have a follow-up chest x-ray in 1 month (your family doctor can order it) to ensure there are no signs of any lingering left-sided pneumonia Return to [facility] if - * you have fever over 100 degrees * you have worsening abdominal pain * you have nausea or vomiting that is not responding to the medicines prescribed * you feel dizzy or lightheaded * you have worsening cough, congestion or shortness of breath * you are unable to maintain your hydration * any other concerns Pending Studies at Discharge: No Stand-Alone Forms: My [facility], Smoking Cessation Medications and DC Order Prescriptions: New amoxicillin-pot clavulanate 875-125 mg tablet 1 tab PO BID 7 Days Qty: 14 0RF Rx Instructions: first dose PM of 05/30/24. pantoprazole [Protonix] 40 mg tablet,delayed release (DR/EC) 40 mg PO DAILY 14 Days Qty: 14 0RF Rx Instructions: first dose 05/30/24. ondansetron 4 mg tablet,disintegrating 4 mg PO Q6H PRN (Reason: nausea and vomiting) Qty: 14 0RF Continued Ritalin 50 mg PO DAILY Discharge Orders: Discharge Order (Routine); Ordered 05/30/24 Ordered By: Benigno Costa/Other Patient Handouts: Full Liquid Diet Dc, ED Diet, Fisher (Adult), ED Alcohol Intoxication Admission Data Admit Date/Time: 05/30/24 08:53 Attending Provider: Benigno Doran Admit Provider: Benigno Rose Primary Care Provider: PCP,NO Other Interventions: Discharge Summary Assessment (RN) Last Done: 05/30/24 18:38 Hospital Stay Data Diagnostic Imagining Performed Head CT 05/30/24 05:31 EXAM: CT head/brain wo con CLINICAL HISTORY: hypothermia, alcohol intoxication INPATIENT TECHNIQUE: : Multiple axial images are obtained from the skull base to the vertex without contrast. CT scan was performed according to ALARA (as low as reasonable achievable COMPARISON: none FINDINGS: The brain shows normal morphology, attenuation, and volume for age. No evidence of space occupying lesion, hemorrhage, edema, mass effect, midline shift, extra axial collection, or hydrocephalus is noted. Ventricles, sulci, and basal cisterns are symmetric and normal in size and configuration. The meek-white matter differentiation is preserved. Visualized paranasal sinuses and mastoid air cells are well aerated. Orbital contents are within normal limits. Bony structures are intact. IMPRESSION: 1. No evidence of acute intracranial abnormality is demonstrated Electronically signed by Iraj Juarez 05-30-2024 06:57 AM Abdomen/Pelvis CT 05/30/24 06:11 EXAM: CT abd pelvis IV con only CLINICAL HISTORY: INPATIENT TECHNIQUE: Contiguous axial images were obtained from the level of the diaphragm to the pubic symphysis without and with intravenous contrast. Coronal and sagittal reconstructions were likewise performed and indicated to increase the sensitivity for detecting clinically relevant pathology. If IV contrast material had not been administered, the likelihood of detecting abnormalities relevant to the patient's condition would have been substantially decreased. CT scan was performed according to ALARA (as low as reasonable achievable). COMPARISON: None. FINDINGS: The visualized lung bases are clear. The liver is normal in size and attenuation. No focal liver lesions are seen. There is no intra or extrahepatic biliary ductal dilatation. Hepatic vasculature is patent. The gallbladder is present. The spleen, pancreas, and adrenal glands are unremarkable. The kidneys are normal in size and attenuation. There is no hydronephrosis or perinephric fat stranding. No renal calculi or renal masses are identified. The ureters are normal in caliber and no ureteral calculi are seen. The bladder is normal in contour. Pelvic viscera are unremarkable. No focal or diffuse bowel wall thickening or evidence of bowel obstruction is identified. The appendix is visualized in the right lower quadrant and appears within normal limits. Abdominal and pelvic vasculature is patent. No adenopathy or fluid collections are seen. No aggressive appearing osseous lesions are identified. IMPRESSION: Unremarkable study. Electronically signed by Iraj Juarez 05-30-2024 07:17 AM Chest CTA 05/30/24 06:11 EXAM: CT angio chest PE protocol CLINICAL HISTORY: 118 ml optiray 320, eval for pe, hypothermic, brachycardia, abd pain INPATIENT TECHNIQUE: Contiguous axial images were obtained from the neck base through the upper abdomen following intravenous administration of iodinated contrast material. Angiographic images were processed, 3D MIP images were acquired for interpretation. If IV contrast material had not been administered, the likelihood of detecting abnormalities relevant to the patient's condition would have been substantially decreased. Coronal and sagittal 3-D MIPs were likewise performed and indicated to increase the sensitivity of detectin diffuse clinically relevant pathology. CT scan was performed according to ALARA (as low as reasonable achievable). COMPARISON: None. FINDINGS: Focal clusters of small ground-glass opacities are noted involving superior segment of left lower lobe. Adequate contrast bolus without evidence of pulmonary embolism. The central airways are patent. The rest of lungs are clear. No pleural effusion. The heart, aorta, and pulmonary arteries are of normal size and configuration. There are no appreciable coronary artery and aortic atherosclerotic calcifications. No pericardial effusion is identified. The thyroid is unremarkable. No mediastinal, hilar, or axillary lymphadenopathy is noted. No suspicious lytic or sclerotic osseous lesions are identified. IMPRESSION: 1. Focal clusters of small ground-glass opacities are noted involving superior segment of left lower lobe.- possibility of infective aetiology 2. No evidence of pulmonary embolism. Electronically signed by Iraj Juarez 05-30-2024 07:16 AM Pending Results Patient Have Any Pending Studies at Discharge: No Discharge Instructions Given to Patient (Per Discharging Provider) Emmanuel Martin were hospitalized due to alcohol intoxication. This led to large amounts of vomiting, low potassium, and likely gastritis. Gastritis is irritation of the stomach lining which can cause mild pain, nausea, etc. The alcohol intoxication & dehydration caused low body temperature. This resolved with IV fluids and a warming blanket. CT scans of the chest, abdomen, and pelvis were taken. The abdomen/pelvis CT was normal. The chest CT showed a small amount of pneumonia in the bottom of the left lung. I suspect that when you were vomiting this led to mild aspiration which is when some of the vomit travels down into the lung(s). Repeat labs late in the day on 05/30 showed normalization of your potassium and other electrolytes. Repeat EKG late in the day on 05/30 was normal. Recommendations - 1. for pneumonia - start TONIGHT, 05/30 - * amoxicillin-clavulanate 875mg twice daily x 7 days * DO NOT DRINK ALCOHOL while taking antibiotics * most common side effect of this antibiotic - diarrhea 2. for suspected gastritis - * pantoprazole 40mg once daily x 14 days, first dose TONIGHT 05/30 3. for nausea and/or vomiting - * ondansetron 4mg every 6 hours as needed 4. diet - * plan to follow a "full liquids" diet tonight and most of tomorrow * see handout on "full liquids" diet * focus on good hydration tonight and tomorrow; water, gatorade, powerade, Pedialyte are all excellent choices for hydration; avoid soda, coffee, caffeinated tea for a few days * avoid alcohol * avoid tobacco * avoid marijuana * as you get into tomorrow night & Sunday morning you can start to add in bland, easy to digest solid foods as tolerated (rice, toast, applesauce, bananas, ch icken breast, etc) * I suspect by Sunday afternoon you will be back to tolerating a normal diet 5. please follow-up with your family doctor THIS SUNDAY upon return to your home in [place]; if you are feeling worse tomorrow or Sunday, however - please seek medical attention in the [facility] ER, a local urgent care, or any other hospital 6. see handout on alcohol intoxication 7. please have a follow-up chest x-ray in 1 month (your family doctor can order it) to ensure there are no signs of any lingering left-sided pneumonia Return to [facility] if - * you have fever over 100 degrees * you have worsening abdominal pain * you have nausea or vomiting that is not responding to the medicines prescribed * you feel dizzy or lightheaded * you have worsening cough, congestion or shortness of breath * you are unable to maintain your hydration * any other concerns Total Time Total Time Spent Total Time Spent (In Minutes): 40 Coding Level of Care Code INP/OBS EV SAME DAY LV 3,85MIN Diagnoses Alcohol intoxication F10.929 Nausea and vomiting R11.2 Aspiration pneumonia J69.0 Tachycardia R00.0 Hypokalemia E87.6 Hypothermia T68.XXXA Gilbert's syndrome E80.4
[2024-05-30 18:40] VITALS: PULSE 38
[2024-06-01 15:53] LABS: Marijuana Quant, GCMS Urine 849 ng/mL (<5)
--- NOTE | 2024-06-02 14:27 | Electrocardiogram Report ---
Test Reason : Blood Pressure : */* mmHG Vent. Rate : 83 BPM Atrial Rate : 83 BPM P-R Int : 154 ms QRS Dur : 110 ms QT Int : 386 ms P-R-T Axes : 73 81 56 degrees QTcB Int : 453 ms Normal sinus rhythm Normal ECG When compared with ECG of 30-May-2024 02:07, ST no longer elevated in Inferior leads Confirmed by Ge Godinez ([id number]) on 06/02/2024 2:27:16 PM Referred By: REFERRED SELF Confirmed By: Ge Godinez
== END 2024-05-30 18:52 | disposition home or self-care (01) ==
LOC: 2N 01:23 → ED 01:23 → 2N 09:47
DX: J69.0 Pneumonitis due to inhalation of food and vomit; E80.4 Gilbert syndrome; Z79.899 Other long term (current) drug therapy; X58.XXXA Exposure to other specified factors, initial encounter; T68.XXXA Hypothermia, initial encounter; E86.0 Dehydration; F10.920 Alcohol use, unspecified with intoxication, uncomplicated; F41.9 Anxiety disorder, unspecified; F17.290 Nicotine dependence, other tobacco product, uncomplicated; E87.6 Hypokalemia